=== PATIENT | female | born 1930 | race Caucasian/White ===

== ENCOUNTER 2017-06-13 15:14 | Inpatient (IN) | payer BC, MEDICARE ==
[~2017-06-13] VITALS: Ht 162.6 cm; Wt 55.8 kg
[2017-06-13] MEDS ORDERED: MORPHINE SULFATE 4 MG/ML CPJ (NOT FOR IM USE) IV STA (16:22)
[2017-06-13] MEDS ORDERED: SODIUM CHLORIDE 0.9% 500 ML IV ONE (16:22)
[2017-06-13] MEDS ORDERED: ONDANSETRON HCL 4MG/2ML VIAL IV STA (16:22)
[2017-06-13 16:51] LABS: BASOPHILS % 1.5 % (0.0-2.0); CHLORIDE 100 mEq/L (98-107); EOSINOPHILS % 1.8 % (0.0-5.0); HEMATOCRIT. 31.6 % (36.0-48.0); HEMOGLOBIN. 10.7 g/dL (12.0-16.0); LYMPHOCYTES % 23.2 % (20.0-50.0); MEAN CORPUSCULAR HEMOGLOBIN 28.2 pg (28.0-32.0); MEAN CORPUSCULAR VOLUME 83.6 fL (81.0-99.0); MEAN PLATELET VOLUME 7.8 fl (7.4-10.4); MONOCYTES % 14.2 % (2.0-8.0); NEUTROPHILS % 59.3 % (40.0-76.0); PLATELET 314 x1000/uL (130-400); RED BLOOD CELL COUNT 3.78 mill/uL (4.2-5.4); RED CELL DISTRIBUTION WIDTH 14.7 % (11.6-14.6)
[2017-06-13 16:54] LABS: PARTIAL THROMBOPLASTIN TIME 28.2 sec (23.4-31.0); PROTHROMBIN TIME 10.6 sec (9.4-11.6)
[2017-06-13 16:56] LABS: CARBON DIOXIDE 32 mEq/L (21-32)
[2017-06-13 17:00] LABS: CREATINE KINASE 19 IU/L (26-192)
[2017-06-13 17:02] LABS: CREATINE KINASE MB FRACTION 0.6 ng/mL (0.5-3.6); TROPONIN I < 0.02 ng/mL (0.00-0.04)
[2017-06-13] MEDS ORDERED: LORAZEPAM 2MG/ML CPJ IV ONE (17:15)
[2017-06-13 19:09] LABS: CLARITY URINE CLEAR (CLEAR); COLOR URINE YELLOW (YELLOW); GLUCOSE URINE NEGATIVE (NEGATIVE); KETONES URINE NEGATIVE (NEGATIVE); LEUKOCYTE ESTERASE URINE 3+ (NEGATIVE); NITRITE URINE NEGATIVE (NEGATIVE); OCCULT BLOOD URINE 2+ (NEGATIVE); PROTEIN URINE NEGATIVE (NEGATIVE); SPECIFIC GRAVITY URINE 1.007 (1.005-1.030); UROBILINOGEN URINE 0.2 E.U./dL (0.2-1.0)
[2017-06-13 22:30] VITALS: BP 123/48
[2017-06-14] VITALS: BP 123/48
[2017-06-14] MEDS ORDERED: ONDANSETRON HCL 4MG/2ML VIAL IV PRN (01:45)
[2017-06-14] MEDS ORDERED: NA PHOS,M-B/NA PHOS,DI-BA ENEMA 118ML PR PRN (01:45)
[2017-06-14] MEDS ORDERED: HYDROCODONE/ACETAMINOPHEN 5/325MG TABLET PO PRN (01:45)
[2017-06-14] MEDS ORDERED: ACETAMINOPHEN 650MG SUPP PR PRN (01:45)
[2017-06-14] MEDS ORDERED: CLONIDINE 0.1MG TABLET PO PRN (01:45)
[2017-06-14] MEDS ORDERED: MAGNESIUM/ALUMINUM HYDROXIDE/SIMETHICONE 30ML UDC PO PRN (01:45)
[2017-06-14] MEDS ORDERED: GUAIFENESIN 200MG/10ML SUGAR FREE UDC PO PRN (01:45)
[2017-06-14] MEDS ORDERED: DOCUSATE SODIUM 100MG CAPSULE PO PRN (01:45)
[2017-06-14] MEDS ORDERED: IPRATROPIUM/ALBUTEROL 0.5-3(2.5)MG/3ML NEB INH PRN (01:45)
[2017-06-14 04:00] VITALS: BP 128/50
[2017-06-14] MEDS: SODIUM CHLORIDE 0.45% 1,000 ML IV SCH ×2 (04:23→17:58)
[2017-06-14] MEDS: SODIUM CHLORIDE 0.9% INJ 3ML FLUSH IVF SCH ×3 (06:00→21:04)
[2017-06-14 08:00] VITALS: BP 130/54
[2017-06-14] MEDS: ENOXAPARIN 40MG/0.4ML SYR SUBCUT SCH (09:16)
[2017-06-14 12:00] VITALS: BP 143/59
[2017-06-14 14:02] LABS: *AMPHETAMINES SCREEN URINE NEGATIVE (NEGATIVE); *BARBITURATES SCREEN URINE NEGATIVE (NEGATIVE); *BENZODIAZEPINES SCREEN URINE NEGATIVE (NEGATIVE); *COCAINE SCREEN URINE NEGATIVE (NEGATIVE); CANNABINOID URINE SCREEN NEGATIVE (NEGATIVE); METHADONE URINE SCREEN NEGATIVE (NEGATIVE); OPIATES URINE SCREEN PRESUMTIVE POSITIVE (NEGATIVE); PHENCYCLIDINE URINE SCREEN NEGATIVE (NEGATIVE)
[2017-06-14 16:00] VITALS: BP 96/46
[2017-06-14 20:00] VITALS: BP 102/52
[2017-06-14] MEDS: DIPHENHYDRAMINE 50MG/ML VIAL IV PRN (20:40)
[2017-06-15] VITALS: BP 144/78
[2017-06-15 04:00] VITALS: BP 101/52
[2017-06-15] MEDS: SODIUM CHLORIDE 0.9% INJ 3ML FLUSH IVF SCH (05:37)
[2017-06-15 08:00] VITALS: BP 133/59
[2017-06-15] MEDS: ENOXAPARIN 40MG/0.4ML SYR SUBCUT SCH (08:08)
[2017-06-15] MEDS: DIPHENHYDRAMINE 50MG/ML VIAL IV PRN (08:08)
[2017-06-15 08:20] LABS: BASOPHILS % 1.2 % (0.0-2.0); EOSINOPHILS % 3.3 % (0.0-5.0); HEMOGLOBIN. 11.1 g/dL (12.0-16.0); LYMPHOCYTES % 40.3 % (20.0-50.0); MEAN CORPUSCULAR HEMOGLOBIN 28.3 pg (28.0-32.0); MEAN CORPUSCULAR VOLUME 86.5 fL (81.0-99.0); MEAN PLATELET VOLUME 7.8 fl (7.4-10.4); MONOCYTES % 12.5 % (2.0-8.0); NEUTROPHILS % 42.7 % (40.0-76.0); PLATELET 299 x1000/uL (130-400); RED BLOOD CELL COUNT 3.93 mill/uL (4.2-5.4); RED CELL DISTRIBUTION WIDTH 15.6 % (11.6-14.6)
[2017-06-15 08:38] LABS: CARBON DIOXIDE 24 mEq/L (21-32); CHLORIDE 103 mEq/L (98-107)
[2017-06-15] MEDS: SODIUM CHLORIDE 0.45% 1,000 ML IV SCH (11:23)
[2017-06-15 12:00] VITALS: BP 117/48
[2017-06-15 16:00] VITALS: BP 138/61
[2017-06-15 17:17] VITALS: BP 138/61
== END 2017-06-15 18:28 | disposition home or self-care (01) | DRG 534 ==
LOC: ER 15:14 → 6EST 17:52 → EDBEDREQ 17:56 → EDBEDREQTM 17:56 → ENRESERV 21:50
PROVIDERS: ADMIT Family Medicine; ATTEND Family Medicine
DX: S72.402A Unspecified fracture of lower end of left femur, initial encounter for closed fracture (principal); D64.9 Anemia, unspecified; E86.0 Dehydration; E44.1 Mild protein-calorie malnutrition; R13.10 Dysphagia, unspecified; F03.90 Unspecified dementia, unspecified severity, without behavioral disturbance, psychotic disturbance, mood disturbance, and anxiety; Z66 Do not resuscitate; W19.XXXA Unspecified fall, initial encounter; Y93.89 Activity, other specified; Y92.89 Other specified places as the place of occurrence of the external cause; Y99.8 Other external cause status; Z74.01 Bed confinement status
CPT/HCPCS: 29799; 36415; 70450; 71010; 73502; 73552; 73562; 80053; 80305; 81001; 82550; 82553; 83690; 84484; 85025; 85610; 85730; 86850; 86900; 87077; 87086; 87186; 93005; 93970; 96361; 96374; 96375; 99285; A6261; C1893; J1200; J1650; J2060; J2270; J2405; J7030; J7040; L1830; A4315